=== PATIENT | female | born 1945 | race Caucasian/White ===

== ENCOUNTER 2017-05-18 10:59 | Inpatient (IN) ==
[2017-05-11 15:43] LABS: Basophils # (Auto) 0 K/mcL (0.0-0.3); Basophils % (Auto) 0.5 % (0.0-2.0); Eosinophils # (Auto) 0.2 K/mcL (0.0-0.7); Eosinophils % (Auto) 2.3 % (0.0-7.0); Lymphocytes # (Auto) 3.2 K/mcL (1.5-4.8); Lymphocytes % (Auto) 36.9 % (15.5-49.0); Mean Cell Volume 91.2 fL (80.0-100.0); Mean Corpuscular HGB Conc 33.1 g/dL (31.0-36.0); Mean Corpuscular Hemoglobin 30.2 pg (26.0-34.0); Monocytes # (Auto) 0.5 K/mcL (0.1-0.9); Monocytes % (Auto) 5.3 % (1.0-12.0); Platelet Count 287 K/mcL (140-440); RBC 4.52 M/mcL (4.00-5.20); Red Cell Distribution Width 13.8 % (11.5-14.5)
[2017-05-11 15:55] LABS: Appearance,Urine HAZY; Bacteria,Urine 0 /hpf (0); Bilirubin,Urine NEG (NEG); Color,Urine YELLOW; Glucose,Urine (UA) NEGATIVE (NEG); Leukocyte Esterase,Urine 250 /uL (NEG); Mucus,Urine FEW /hpf (0); Nitrate,Urine NEG (NEG); Protein,Urine NEG (NEG); Specific Gravity,Urine 1.024 (1.000-1.035); Urine Blood NEG mg/dL (<0.03); Urine RBC 1 /hpf (0-1); Urine Squamous Epithelial Cell 2 /hpf (0-4); Urine WBC 16 /hpf (0-4); Urobilinogen,Urine NEG (NEG)
[2017-05-11 15:58] LABS: Blood Urea Nitrogen 13 mg/dl (8-23)
--- NOTE | 2017-05-13 16:26 | EKG Interpretations ---
[employer] NET DEVELOPER: Alvin Alexander MD ENCOUNTER DATE: 05/18/2017 ELECTROCARDIOGRAM DATE: 05/11/2017 FINDINGS: Regular sinus rhythm, rate 72 beats per minute. Nonspecific inferolateral ST-segment changes. MARLEN: Job ID: [id number] Doc ID: [id number] Alvin Alexander MD
[~2017-05-18 10:59] MED LIST: KETOROLAC 30 MG, ROPIVACAINE HCL/PF 49.5 ML, EPINEPHrine 0.5 MG, 0.9 % SODIUM CHLORIDE ... IJ SCH; ceFAZolin 1 GM VIAL IV SCH
[2017-05-18] MEDS ORDERED: HYDROmorphone 2 MG/ML SYRINGE IV ONE (15:46)
[2017-05-18] MEDS ORDERED: KETOROLAC 30 MG, ROPIVACAINE HCL/PF 49.5 ML, EPINEPHrine 0.5 MG, 0.9 % SODIUM CHLORIDE ... IJ SCH (17:30)
[2017-05-18] MEDS ORDERED: IPRATROPIUM/ALBUTEROL 3 ML AMPUL.NEB NEB ONE (19:09)
[2017-05-18] MEDS ORDERED: DEXAMETHASONE 10 MG/ML VIAL IV ONE (19:50)
[2017-05-18] MEDS ORDERED: PROPOFOL 200 MG/20 ML VIAL IV ONE (19:50)
[2017-05-18] MEDS ORDERED: TRANEXAMIC ACID 1,000 MG/10 ML VIAL IV ONE ×2 (19:50→21:17)
[2017-05-18] MEDS ORDERED: LIDOCAINE HCL/PF 100 MG/5 ML SYRINGE IV ONE (19:50)
[2017-05-18] MEDS ORDERED: ePHEDrine 50 MG/ML AMPUL IV ONE (19:50)
[2017-05-18] MEDS ORDERED: ROPIVACAINE HCL/PF 20 ML VIAL IJ ONE (19:50)
[2017-05-18] MEDS ORDERED: ONDANSETRON 4 MG/2 ML VIAL IV ONE (19:50)
[2017-05-18] MEDS ORDERED: MIDAZOLAM 5 MG/5 ML VIAL IV ONE (19:50)
[2017-05-18] MEDS ORDERED: GENTAMICIN SULFATE 800 MG/20 ML VIAL IR ONE (20:29)
[2017-05-18] MEDS ORDERED: MEPERIDINE 25 MG/ML SYRINGE IV PRN (20:45)
[2017-05-18] MEDS ORDERED: ACETAMINOPHEN 1,000 MG/100 ML BOTTLE IV ONE (20:45)
[2017-05-18] MEDS ORDERED: ePHEDrine 50 MG/ML AMPUL IV PRN (20:45)
[2017-05-18] MEDS ORDERED: diphenhydrAMINE 50 MG/ML VIAL IV PRN (20:45)
[2017-05-18] MEDS ORDERED: ONDANSETRON 4 MG/2 ML VIAL IV PRN ×2 (20:45→21:17)
[2017-05-18] MEDS ORDERED: NALOXONE HCL 0.4 MG/ML VIAL IV PRN (20:45)
[2017-05-18] MEDS ORDERED: BENZOCAINE/MENTHOL 1 LOZENGE PO PRN ×2 (20:45→21:17)
[2017-05-18] MEDS ORDERED: FLUMAZENIL 0.1 MG/ML ML IV PRN (20:45)
[2017-05-18] MEDS ORDERED: fentaNYL 100 MCG/2 ML VIAL IV PRN (20:45)
[2017-05-18] MEDS ORDERED: METOPROLOL TARTRATE 5 MG/5 ML VIAL IV PRN (20:45)
[2017-05-18] MEDS ORDERED: LACTATED RINGERS 1,000 ML IV SCH (20:45)
[2017-05-18] MEDS ORDERED: HYDROmorphone 2 MG/ML SYRINGE IV PRN (20:45)
[2017-05-18] MEDS ORDERED: ATROPINE SULFATE 0.4 MG/ML VIAL IV PRN (20:45)
[2017-05-18] MEDS ORDERED: METHOCARBAMOL 1,000 MG/10 ML VIAL IV PRN (20:45)
[2017-05-18] MEDS ORDERED: IPRATROPIUM/ALBUTEROL 3 ML AMPUL.NEB NEB PRN (20:45)
[2017-05-18] MEDS ORDERED: METHOCARBAMOL 750 MG TABLET PO PRN (21:17)
[2017-05-18] MEDS ORDERED: POLYETHYLENE GLYCOL 3350 17 GM PACKET PO PRN (21:17)
[2017-05-18] MEDS ORDERED: FLEETS ADULT ENEMA PR PRN (21:17)
[2017-05-18] MEDS ORDERED: BISACODYL 10 MG SUPP.RECT PR PRN (21:17)
[2017-05-18] MEDS ORDERED: MAGNESIUM HYDROXIDE 30 ML ORAL.SUSP PO PRN (21:17)
--- NOTE | 2017-05-18 21:17 | Brief Operative Note ---
Date of procedure: 05/18/17 Pre-op diagnosis: Primary OA left knee Post-op diagnosis: same Procedure: L total knee arthroplasty Grafts/Implants: Yes (SNN BCS knee) Anesthesia: MICA Surgeon: Donal Salvador Credit Card Specialist: Guru Mak Estimated blood loss (cc): 100 Tourniquet Time (Minutes): 55 Specimens Removed/Pathology: none sent Condition: stable Disposition: PACU
[2017-05-18] MEDS ORDERED: ALBUTEROL SULFATE 1 PUFF INHALER IH PRN (21:21)
[2017-05-18] MEDS: 0.9 % SODIUM CHLORIDE 1,000 ML IV SCH (22:08)
[2017-05-18] MEDS: HYDROcodone/APAP 10/325MG TABLET PO PRN (23:20)
[2017-05-19] MEDS ORDERED: HYDROmorphone 2 MG/ML SYRINGE IV PRN (00:35)
[2017-05-19] MEDS ORDERED: HYDROmorphone 2 MG/ML SYRINGE ONE (01:03)
[2017-05-19] MEDS: 0.9 % SODIUM CHLORIDE 10 ML SYRINGE IV SCH ×2 (01:05→05:21)
[2017-05-19] MEDS ORDERED: ceFAZolin 1 GM VIAL ONE (02:42)
[2017-05-19] MEDS: HYDROcodone/APAP 10/325MG TABLET PO PRN ×2 (07:14→12:02)
--- NOTE | 2017-05-19 07:56 | Discharge Summary ---
Ortho Discharge - TKA - Patient Instructions Diet: Regular Diet Activity: activity as tolerated Total Knee Protocol: For Total Knee: Start ROM RALPH with stationary bike or rocking chair. Work on gaining full extension of knee. Posterior dislocation precautions provided. Hip abductor strengthening and gait training instructions provided. Apply Cryocuff as instructed. Dressing Care: May shower in 2 days Patient Education: General Anesthesia (GEN) Additional Instructions: Discharge Instructions: Do the exercises at home that physical therapy gave you. Take your prescription, photo ID, insurance cards, and current medication list with you to your first physical therapy appointment. Take your prescription to seed cone picker any medication or equipment (such as walker, crutches, toilet riser or C.P.M.) Wear comfortable clothing for your physical therapy. Weight bearing as tolerated. If you have the Aquacel Ag dressing, leave in place for 7 days then remove. If dressing becomes soiled (turns black), remove and use gauze 4x4 dressing and silvasorb ointment and change daily. Keep incision clean and dry. If you have Dermabond (a dressing with a mesh-like appearance), leave open to air. You may start showering on post op day #2. The Dermabond dressing can get wet, do not scrub dressing. Pat dry. To avoid constipation while taking any narcotic pain medication, take an over the counter stool softener/laxative. Use your Cryocuff or ice packs as directed, on for 20 minutes at a time throughout the day. This and elevation will help with pain and swelling. Call your physician for fevers above 100.5 or pain not controlled by medication. Your prescriptions are with your discharge information. Some medications were electronically transmitted to your pharmacy of choice. - Follow Up Plan Follow Up Appointments: Guru Mak PA-C [Physician Toddler Nanny] - Disposition: Home, Self-Care Prognosis: Good Rehab Potential: Good I certify that the patient requires SNF services: No Overall status at discharge: patient is not back to baseline
--- NOTE | 2017-05-19 07:58 | XRay Report ---
CLINICAL INFORMATION: Reason for Exam:Post-op total knee COMPARISON: None. FINDINGS: Total knee prostheses is anatomically aligned. There is no osseous abnormality. Periarticular soft tissue swelling and gas seen as expected. IMPRESSION: Negative Interpreted and Authenticated by: Emmett Clancy 05/19/17
--- NOTE | 2017-05-19 08:02 | Orthopedic Progress Note ---
Subjective Patient information: Note initiated : 05/19/17 at 8:00 am Service Date, if different from initiated Date: [] Patient: Brenda Hall 71 y/o F admitted on 05/18/17 for Left Total Knee Arthroplasty. Chief Complaint: [] Principal diagnosis: knee replacement Objective Vital signs: Vital Signs Temp Pulse Pulse Pulse Resp BP BP 05/19/17 07:39 79 05/19/17 06:40 05/19/17 04:00 97.0 F 76 18 102/62 05/19/17 00:00 96.9 F L 80 16 130/84 05/18/17 23:45 96.9 F L 81 16 132/83 05/18/17 23:15 97.0 F 77 16 133/78 05/18/17 23:00 77 16 124/83 05/18/17 22:45 97.0 F 79 16 148/83 05/18/17 22:35 96.8 F L 84 18 137/72 05/18/17 22:25 86 16 139/77 05/18/17 22:20 96.5 F L 82 16 139/77 05/18/17 22:10 97.6 F 82 18 133/60 05/18/17 22:04 82 17 132/51 05/18/17 21:49 90 17 105/56 05/18/17 21:34 97.4 F 100 H 16 142/62 05/18/17 16:00 97.5 F 80 16 157/85 05/18/17 12:00 97.5 F 16 169/87 Pulse Ox 05/19/17 07:39 97 05/19/17 06:40 97 05/19/17 04:00 97 05/19/17 00:00 96 05/18/17 23:45 96 05/18/17 23:15 99 05/18/17 23:00 98 05/18/17 22:45 98 05/18/17 22:35 99 05/18/17 22:25 97 05/18/17 22:20 98 05/18/17 22:10 99 05/18/17 22:04 100 05/18/17 21:49 100 05/18/17 21:34 100 05/18/17 16:00 95 05/18/17 12:00 95 Intake and Output 05/18/17 05/19/1705/19/17 21:59 05:59 13:59 Intake Total 1800 / 1800 500 / 500 790 / 790 Output Total 200 / 200 601 / 601 Balance 1600 / 1600 -101 / -101 790 / 790 Intake: IV 790 / 790 Sodium Chloride 0.9% 1, 790 / 790 000 ml @ 100 mls/hr IV . Q10H [facility] Rx#:[id number] Oral 0 / 0 400 / 400 IV - Manual Only 1800 / 1800 100 / 100 Output: Void Amount 150 / 150 600 / 600 # of times incontinent of 1 / 1 urine Estimated Blood Loss 50 / 50 Other: Meal 1/2 sandwich & applesauce Percent of Meal Consumed 100% Feeding Ability Independent Weight 186 lb Intake & Output: Intake & Output 05/18/17 05/19/17 05/19/17 21:59 05:59 13:59 Intake Total 1800 / 1800 500 / 500 790 / 790 Output Total 200 / 200 601 / 601 Balance 1600 / 1600 -101 / -101 790 / 790 Weight 186 lb Intake: IV 790 / 790 Sodium Chloride 0.9% 1, 790 / 790 000 ml @ 100 mls/hr IV . Q10H [facility] Rx#:[id number] Oral 0 / 0 400 / 400 IV - Manual Only 1800 / 1800 100 / 100 Output: Void Amount 150 / 150 600 / 600 # of times incontinent of 1 / 1 urine Estimated Blood Loss 50 / 50 Other: Meal 1/2 sandwich & applesauce Percent of Meal Consumed 100% Feeding Ability Independent Incision clean and dry: Yes Dressing: Yes clean, Yes dry Weight bearing status: as tolerated Neurological exam IM: Yes motor sensory intact Extremities exam IM: Yes neurovascular intact - Labs CBC & BMP: 05/19/17 05:12 05/11/17 13:56 Labs: Orthopedic Labs 05/11/17 13:56 PT 13.7 INR 1.0 05/19/17 05/11/17 05:12 13:56 Hgb 13.7 Hct 36.1 41.3 Assessment and Plan (1) Status post left knee replacement doing well . Continue PT and Lovenox Status: Acute
[2017-05-19] MEDS ORDERED: DOCUSATE SODIUM 100 MG CAPSULE PO SCH (09:00)
[2017-05-19] MEDS ORDERED: BECLOMETHASONE DIPROPIONATE 40MCG INHALER INH SCH (09:00)
[2017-05-19] MEDS ORDERED: ENOXAPARIN 30 MG/0.3 ML SYRINGE SQ SCH (09:00)
[2017-05-19] MEDS: 0.9 % SODIUM CHLORIDE 1,000 ML IV SCH (10:07)
[2017-05-19] MEDS ORDERED: ceFAZolin 1 GM VIAL IV ONE (11:00)
--- NOTE | 2017-05-19 11:44 | Operative Note ---
DATE OF OPERATION: 05/18/2017 PREOPERATIVE DIAGNOSIS: Degenerative joint disease of the left knee. POSTOPERATIVE DIAGNOSIS: Degenerative joint disease of the left knee. OPERATION: Left total knee replacement. SURGEON: Donal Salvador MD STOVE REFINISHER: Guru Mak PA-C ANESTHESIA: General done by Cheyenne Martinez CRNA. TOURNIQUET TIME: 55 minutes. ESTIMATED BLOOD LOSS: 250 mL SUMMARY OF PROCEDURE: General anesthesia was attained. The left leg was prepped and draped. A midline incision was made over the quadriceps and medial retinaculum. It was taken down sharply to this layer. The quadriceps and medial retinaculum was split. The quadriceps was mobilized laterally. The anterior menisci were resected. The intramedullary canals of both bones were drilled. The distal 9.5 mm of femur were resected using the guide system. Next, the proximal tibia was exposed. A guide system was used and a resection was done of the proximal tibia. The tibia sized to a 1. Flexion and extension balancing was then confirmed to be satisfactory using the guide system from [employer]. The femur was next prepared. The notch cuts were made using the guide system. The tibia was prepared by drilling and then broaching of the bone. The patella was everted. An anatomic 9 mm resection was done using a measured technique from a 23 down to 14 mm thickness. The prong holes were drilled in the patella. The joint surfaces were thoroughly irrigated. The posterior capsule was infiltrated with the multimodal solution for postoperative analgesia. The components were cemented in. Excess cement was removed. Cement was cured with the knee in extension. The tourniquet was let down. All bleeding points were coagulated. The quadriceps was closed with buried simple sutures of #2 FiberWire. The medial retinaculum was closed with a running locking 0 Maxon. The subcutaneous tissue was closed with 2-0 Monocryl throughout. The skin was closed with Dermabond. A sterile compressive dressing was applied. The sponge and needle count was correct. The patient tolerated the procedure well. She was taken to the recovery room in stable condition. TJF:[email or web address] Job ID: [id number] Doc ID: [id number] Donal Salvador MD
[2017-05-19] MEDS ORDERED: MONTELUKAST 10 MG TABLET PO SCH (21:00)
[2017-05-19] MEDS ORDERED: SENNOSIDES 1 TABLET PO SCH (21:00)
== END 2017-05-19 13:50 | disposition home or self-care (01) | DRG 470 ==
LOC: MEDSUR 10:59
PROVIDERS: ADMIT Orthopaedic Surgery Foot and Ankle Surgery; ATTEND Orthopaedic Surgery Foot and Ankle Surgery

== ENCOUNTER 2022-08-26 08:10 | Inpatient (IN) ==
--- NOTE | 2022-08-22 09:27 | EKG ---
[facility] Test Date: 2022-08-22 Pat Name: Brenda Hall Department: [facility] Room: Gender: Female Local [employer] Truck Driver: : [id number] Requested By: William Mondragon Order Number: [id number] Reading MD: Emmett Song M.D. Measurements Intervals [place] Rate: 65 P: 17 WI: 144 QRS: -23 QRSD: 101 T: 26 QT: 402 QTc: 417 Interpretive Statements Sinus rhythm Borderline left axis deviation Minimal ST depression, anterolateral leads Electronically Signed On 08-22-2022 9:27:01 PST by Emmett Song M.D. /store/[email or web address]/[id number]
[2022-08-22 12:51] LABS: Basophils # (Auto) 0.07 K/mcL (0.00-0.30); Basophils % (Auto) 0.9 % (0.0-2.0); Eosinophils # (Auto) 0.22 K/mcL (0.00-0.70); Eosinophils % (Auto) 2.8 % (0.0-7.0); Hematocrit 39.5 % (34.1-44.9); Hemoglobin 12.6 g/dL (11.2-15.7); Lymphocytes # (Auto) 2.33 K/mcL (1.50-4.80); Mean Cell Volume 94.5 fL (80.0-100.0); Mean Corpuscular HGB Conc 31.9 g/dL (31.0-36.0); Mean Platelet Volume 9.4 fL (8.8-12.5); Monocytes # (Auto) 0.44 K/mcL (0.10-0.90); Monocytes % (Auto) 5.7 % (1.0-12.0); Neutrophils % (Auto) 60.2 % (38.0-78.0); Platelet Count 255 K/mcL (140-440); RBC 4.18 M/mcL (3.59-5.38); Red Cell Distribution Width 13.2 % (11.5-14.5); WBC 7.8 K/mcL (4.5-11.0)
[2022-08-22 13:04] LABS: Appearance,Urine CLEAR (Clear); Bacteria,Urine Few /hpf (0); Bilirubin,Urine NEGATIVE (Negative); Color,Urine LT. YELLOW; Culture Indicated,Urine No; Glucose,Urine (UA) NEGATIVE (Negative); Ketones,Urine NEGATIVE (Negative); Leukocyte Esterase,Urine SMALL /uL (Negative); Mucus,Urine Few /hpf; Nitrate,Urine NEGATIVE (Negative); Protein,Urine NEGATIVE (Negative); Urine Amorphous Crystals Few /hpf; Urine Blood NEGATIVE ery/mcL (Negative); Urine RBC 2 /hpf (0-3); Urine Squamous Epithelial Cell 8 /hpf (0-4); Urine Transitional Epi Cells 2 /hpf (0-2); Urine WBC 9 /hpf (0-4); Urobilinogen,Urine Normal
[2022-08-22 16:08] LABS: Blood Urea Nitrogen 10 mg/dL (8-23); Calcium 9.6 mg/dL (8.6-10.4); Carbon Dioxide 26 mmol/L (22-30); Chloride 103 mmol/L (96-108); Glomerular Filtration Rate 85; Glucose 87 mg/dL (70-105)
[~2022-08-26 08:10] MED LIST changes: +0.9 % SODIUM CHLORIDE 9 ML, KETOROLAC 30 MG, ROPIVACAINE HCL/PF 49.5 ML, EPINEPHrine 0.... IJ SCH; +ACETAMINOPHEN 500 MG TABLET PO SCH; +CELECOXIB 200 MG CAPSULE PO SCH; -KETOROLAC 30 MG, ROPIVACAINE HCL/PF 49.5 ML, EPINEPHrine 0.5 MG, 0.9 % SODIUM CHLORIDE ... IJ SCH; +PREGABALIN 75 MG CAPSULE PO SCH; -ceFAZolin 1 GM VIAL IV SCH; +ceFAZolin 2 GM in DEXTROSE 5% IN WATER 50 ML IV SCH; +oxyCODONE 10 MG TAB.ER.12H PO SCH
[2022-08-26] MEDS ORDERED: TRANEXAMIC ACID 1,000 MG/10 ML VIAL ONE (09:57)
[2022-08-26] MEDS ORDERED: MAGNESIUM SULFATE 2 GM/50 ML BAG IV ONE (09:57)
[2022-08-26] MEDS ORDERED: LIDOCAINE HCL/PF 100 MG/5 ML SYRINGE IV ONE (09:57)
[2022-08-26] MEDS ORDERED: ROPIVACAINE HCL/PF 20 ML VIAL IJ ONE (09:57)
[2022-08-26] MEDS ORDERED: DEXAMETHASONE 10 MG/ML VIAL ONE (09:57)
[2022-08-26] MEDS ORDERED: PROPOFOL 200 MG/20 ML VIAL IV ONE (09:57)
[2022-08-26] MEDS ORDERED: ONDANSETRON 4 MG/2 ML VIAL ONE (09:57)
[2022-08-26] MEDS ORDERED: GLYCOPYRROLATE 0.2 MG/ML VIAL IV ONE (09:57)
[2022-08-26] MEDS ORDERED: KETAMINE 50 MG/ML Syringe (ANEST) IV ONE (09:57)
[2022-08-26] MEDS ORDERED: IPRATROPIUM/ALBUTEROL 3 ML AMPUL.NEB NEB PRN ×2 (10:00→10:52)
[2022-08-26] MEDS ORDERED: SCOPOLAMINE 1 PATCH PATCH TOPICAL PRN (10:00)
[2022-08-26] MEDS ORDERED: METOPROLOL TARTRATE 5 MG/5 ML VIAL IV PRN (10:52)
[2022-08-26] MEDS ORDERED: ONDANSETRON 4 MG/2 ML VIAL IV PRN ×2 (10:52→11:00)
[2022-08-26] MEDS ORDERED: NALOXONE HCL 0.4 MG/ML VIAL IV PRN (10:52)
[2022-08-26] MEDS ORDERED: LACTATED RINGERS 250 ML IV PRN (10:52)
[2022-08-26] MEDS ORDERED: LABETALOL 5 MG/ML ML IV PRN (10:52)
[2022-08-26] MEDS ORDERED: fentaNYL 100 MCG/2 ML VIAL IV PRN (10:52)
[2022-08-26] MEDS ORDERED: METHOCARBAMOL 1,000 MG/10 ML VIAL IV PRN (10:52)
[2022-08-26] MEDS ORDERED: MEPERIDINE 25 MG/ML VIAL IV PRN (10:52)
[2022-08-26] MEDS ORDERED: TRANEXAMIC ACID 1,000 MG/10 ML VIAL IV ONE (11:00)
[2022-08-26] MEDS ORDERED: POLYETHYLENE GLYCOL 3350 17 GM PACKET PO PRN (11:00)
[2022-08-26] MEDS ORDERED: ACETAMINOPHEN 325 MG TABLET PO PRN (11:00)
[2022-08-26] MEDS ORDERED: FLEETS ADULT ENEMA PR PRN (11:00)
[2022-08-26] MEDS ORDERED: MAGNESIUM HYDROXIDE 30 ML ORAL.SUSP PO PRN (11:00)
[2022-08-26] MEDS ORDERED: HYDROmorphone 1 MG/ML SYRINGE IV PRN (11:00)
[2022-08-26] MEDS ORDERED: LACTATED RINGERS 1,000 ML IV SCH (11:00)
[2022-08-26] MEDS ORDERED: TEMAZEPAM 15 MG CAPSULE PO PRN (11:00)
[2022-08-26] MEDS ORDERED: BISACODYL 10 MG SUPP.RECT PR PRN (11:00)
--- NOTE | 2022-08-26 11:00 | Brief Operative Note ---
Brief Operative Note Date of procedure: 08/26/22 Pre-op diagnosis: left knee failed tka patella Post-op diagnosis: same Procedure: left tka revision patella Grafts/Implants: Yes Anesthesia: GETA Findings: maltracking patella Complications: none Surgeon: Isaiah Franco Transportation Design Engineer: Dayday Payton Estimated blood loss (cc): 21 Tourniquet Time (Minutes): 34 Specimens Removed/Pathology: none sent Condition: stable Disposition: PACU
[2022-08-26] MEDS ORDERED: ALBUTEROL SULFATE 60 PUFF INHALER IH PRN (11:03)
--- NOTE | 2022-08-26 11:03 | Discharge Plan ---
Discharge Instructions - TKA Patient Instructions Total Knee Protocol: For Total Knee: Start ROM RALPH with stationary bike or rocking chair. Work on gaining full extension of knee. Posterior dislocation precautions provided. Hip abductor strengthening and gait training instructions provided. Apply Cryocuff as instructed. Dressing Care: May shower in 2 days Discharge Plan Patient/Caregiver Discharge Instructions Activity: ambulate only with your walker and as per physical therapy Diet: Regular Diet Activity Restrictions/Additional Instructions: Resume home diet as tolerated. Do the exercises at home that physical therapy gave you. Start ROM RALPH with stationary bike or rocking chair. Work on gaining full extension of knee. Weight bearing as tolerated operative side. Activity as tolerated. Use your ice packs as tolerated throughout the day. The icing of your knee, use of ANITA wrap, and elevation will help with pain and swelling. Contact the physical therapy facility of your choice on Monday, 09/01, to schedule your first appointment. Take your prescription, photo ID, insurance cards, and current medication list with you to your first physical therapy appointment. Wear comfortable clothing for your physical therapy. Consider pre- medicating with pain medication 45 minutes prior to physical therapy appointment. Do not drive while on pain medication. You have the ZipLine dressing (a waterproof dressing) covering your surgical incision. DO NOT remove this dressing. Leave in place until follow-up appt. You may start showering on Monday, . The Zipline dressing can get wet. Do not scrub dressing. Do not use soaps, creams, or lotions over the dressing. Pat dry. No bathing or soaking in hot tub until released by surgeon. Replace daily with new gauze and secure with ANITA wrap. Take your prescriptions to corn picker equipment or medications. Your prescriptions are with your discharge information. Some medications were electronically transmitted to [facility] pharmacy of choice. You will be taking Aspirin 81 mg 2 x daily for 30 days to prevent blood clots. To avoid constipation while taking any narcotic pain medication, take an over the counter stool softener/laxative. If you have any questions or concerns, call your orthopedic surgeon before going to the emergency room. [facility] has an on-call physician 24 hours per day/7 days per week and can be reached at [phone]. Call for fevers above 100.5 or pain not controlled by medication. This discharge packet is provided to you to help keep you informed about your care. We want to ensure you get everything you need when you go home. You will also be receiving a call from us in a few days to follow up with you and see how you are doing since your discharge. This gives us a chance to listen to any concerns you maybe experiencing since you were discharged or any additional needs you may have, as well as providing us feedback on your care experience. We strive to always provide excellent care and thank you for your feedback and for choosing [facility]. Prescriptions: New hydrocodone-acetaminophen 10-325 mg tablet 1 - 2 tab PO Q4H PRN (Reason: pain) Qty: 75 0RF aspirin [Ecotrin Low Strength] 81 mg tablet,delayed release (DR/EC) 81 mg PO BID Qty: 60 0RF docusate sodium 100 mg capsule 100 mg PO BID Qty: 60 0RF No Action montelukast 10 MG tablet 10 mg PO HS PRN (Reason: asthma) albuterol sulfate [Proventil HFA] 6.7 GM HFA aerosol inhaler 2 gm IH Q6HP PRN (Reason: Shortness Of Breath) Qvar RediHaler 1 PUFF HFA aerosol breath activated 1 puff INH DAILY Centrum Silver Tablet 1 tab PO QDAY gabapentin 300 mg Tablet 600 mg PO QPM Fruit and Vegetable Daily 5-6-150 mg Capsule 1 cap PO DAILY ferrous sulfate 324 mg (65 mg iron) Tablet,Delayed Release (Dr/Ec) 324 mg PO .QOD potassium gluconate 595 mg (99 mg) Tablet 595 mg PO QDAY vitamin K2 40 mcg Tablet 40 mcg PO QDAY turmeric 400 mg Capsule 400 mg PO DAILY Follow Up Plan Follow up with: Dayday Payton PA-C [Physician [employer] Facer] - 09/06/22 1:40 pm Patient Disposition: Home, Self-Care Prognosis: Critical Rehab Potential: Good I certify that the patient requires SNF services: No Overall status at discharge: patient is progressing back to baseline Discharge Orders: Discharge Order (Routine); Ordered 08/27/22 Ordered By: Dayday Payton Discharge Comment: accompanied by spouse
--- NOTE | 2022-08-26 11:55 | XRay Report ---
INDICATION: Post-Op Total Knee TECHNIQUE: AP and crosstable lateral COMPARISON: Previous examination dated 02/04/2022 FINDINGS:Status post revision of left total knee arthroplasty. Normal anatomic alignment. There is postsurgical soft tissue and intra-articular gas. IMPRESSION: Revision of left total knee arthroplasty Interpreted and Authenticated by: Emmett Souza 08/26/22
[2022-08-26] MEDS: 0.45 % SODIUM CHLORIDE 1,000 ML IV SCH ×2 (13:38→21:22)
[2022-08-26] MEDS: ceFAZolin 1 GM VIAL IV SCH (17:08)
[2022-08-26] MEDS: 0.9 % SODIUM CHLORIDE 10 ML SYRINGE IV SCH ×2 (17:09→21:22)
[2022-08-26] MEDS: HYDROcodone/APAP 10/325MG TABLET PO PRN (18:47)
[2022-08-26] MEDS ORDERED: GABAPENTIN 300 MG CAPSULE PO SCH (21:00)
[2022-08-26] MEDS ORDERED: SENNOSIDES 1 TABLET PO SCH (21:00)
[2022-08-26] MEDS ORDERED: MONTELUKAST 10 MG TABLET PO PRN (21:00)
[2022-08-26] MEDS: DOCUSATE SODIUM 100 MG CAPSULE PO SCH (21:20)
[2022-08-27] MEDS: HYDROcodone/APAP 10/325MG TABLET PO PRN ×3 (00:19→10:15)
[2022-08-27] MEDS: ceFAZolin 1 GM VIAL IV SCH (02:10)
[2022-08-27] MEDS: 0.45 % SODIUM CHLORIDE 1,000 ML IV SCH (05:25)
[2022-08-27] MEDS: 0.9 % SODIUM CHLORIDE 10 ML SYRINGE IV SCH (06:09)
[2022-08-27] MEDS: DOCUSATE SODIUM 100 MG CAPSULE PO SCH (08:43)
[2022-08-27] MEDS ORDERED: BECLOMETHASONE DIPROPIONATE 40MCG INHALER INH SCH (09:00)
[2022-08-27] MEDS ORDERED: VITAMIN K2 40 MCG PO SCH (09:00)
[2022-08-27] MEDS ORDERED: POTASSIUM GLUCONATE PO SCH (09:00)
[2022-08-27] MEDS ORDERED: MULTIVIT,THER IRON,CA,FA & MIN 1 TABLET PO SCH (09:00)
[2022-08-27] MEDS ORDERED: [UNRECOGNIZED DRUG - OTHER] PO SCH (09:00)
[2022-08-27] MEDS ORDERED: NON FORMULARY MEDICATION 1 DOSE MISCELL (Turmeric 400 mg Capsule) PO SCH (09:00)
--- NOTE | 2022-08-27 10:11 | Orthopedic Progress Note ---
SUBJECTIVE Subjective Patient information: Note initiated : 08/27/22 at 10:07 am Service Date, if different from initiated Date: [] Patient: Brenda Hall 77 y/o F admitted on 08/26/22 for Left Total Knee Arthroplsty Revision. Chief Complaint: total knee left with no nausea or vomiting[] Principal diagnosis: total knee revision Constitutional Vitals: Vital Signs Temp Pulse Resp BP Pulse Ox O2 Del Method O2 Flow Rate 97.6 F 67 14 108/61 97 2 08/27/22 07:30 08/27/22 07:30 08/27/22 07:30 08/27/22 07:30 08/27/22 07:39 08/27/22 07:39 08/27/22 00:00 Period Temp Pulse Resp BP Sys/Stevens Pulse Ox O2 Del Method O2 Flow Rate Last 24 Hr 96.9 F-98.1 F 59-78 7-24 88-124/53-96 96-100 Nasal Cannula- Room Air 2-6 Intake and Output 08/26/22 08/27/22 08/27/22 19:59 03:59 11:59 Intake Total 2060 2280 480 Output Total 808 655 0055 Balance 1610 1680 -520 Weight 150 lb 12.8 oz Intake & Output: Intake & Output 08/26/22 08/27/22 08/27/22 19:59 03:59 11:59 Intake Total 2060 2280 480 Output Total 879 075 6080 Balance 1610 1680 -520 Weight 150 lb 12.8 oz Intake: IV 1000 Lactated Ringers 1,000 ml @ 20 1000 mls/hr IV .Q24H [facility] Rx#: [id number] Oral 960 1280 480 IV - Manual Only 1100 Output: Urine Catheter Amount 400 Void Amount 600 1000 Estimated Blood Loss 50 Other: Meal Lunch Nourishment/Supplement Breakfast Percent of Meal Consumed 100% 100% 100% Feeding Ability Independent Independent Independent Urine Appearance Clear Clear Clear Urine Color Yellow Yellow Yellow Urine Odor Normal Normal General appearance: average body habitus and no acute distress Expanded Lower Extremity Exam Ankle exam: Present swelling OBJ DATA Labs CBC & Chem 7: 08/27/22 05:03 08/22/22 08:48 Meds: Medications Acetaminophen (Acetaminophen 325 Mg Tablet) 650 mg PO Q6HP PRN; Protocol PRN Reason: Per Pain Protocol/Fever > 101 Hydrocodone Bitart/Acetaminophen (Hydrocodone/Apap 10/325mg Tablet) 1 - 2 tab PO Q4HP PRN; Protocol PRN Reason: Per Pain Protocol Last Admin: 08/27/22 06:08 Dose: 1 tab Albuterol Sulfate (Albuterol Sulfate 60 Puff Inhaler) 2 puff IH Q6HP PRN PRN Reason: Shortness Of Breath Bisacodyl (Bisacodyl 10 Mg Supp.Rect) 10 mg ME Q2-3DAYS PRN PRN Reason: Constipation Docusate Sodium (Docusate Sodium 100 Mg Capsule) 100 mg PO BID [facility] Last Admin: 08/27/22 08:43 Dose: 100 mg Gabapentin (Gabapentin 300 Mg Capsule) 600 mg PO QPM [facility] Last Admin: 08/26/22 21:20 Dose: 600 mg Hydromorphone HCl (Hydromorphone 1 Mg/Ml Syringe) 0.5 - 2 mg IV Q2HP PRN; Protocol PRN Reason: Per Pain Protocol Sodium Chloride (Sodium Chloride 0.45%) 1,000 mls @ 100 mls/hr IV .Q10H [facility] Last Admin: 08/27/22 05:25 Dose: Not Given Iron Carb/Multivit/[place]/Folic Acid (Multivit,Ther Iron,Ca,Fa & Min 1 Tablet) 1 tab PO QDAY [facility] Last Admin: 08/27/22 08:43 Dose: 1 tab Magnesium Hydroxide (Magnesium Hydroxide 30 Ml Oral.Susp) 30 ml PO BIDP PRN PRN Reason: Constipation Montelukast Sodium (Montelukast 10 Mg Tablet) 10 mg PO HSP PRN PRN Reason: asthma Ondansetron HCl (Ondansetron 4 Mg/2 Ml Vial) 4 mg IV Q4HP PRN PRN Reason: Nausea And Vomiting Polyethylene Glycol (Polyethylene Glycol 3350 17 Gm Packet) 17 gm PO DAILYP PRN PRN Reason: Constipation Senna (Sennosides 1 Tablet) 2 tab PO HS [facility] Last Admin: 08/26/22 21:20 Dose: 2 tab Sodium Biphosphate/Sodium Phosphate (Fleets Adult Enema) 1 dose ME Q3-4DAYS PRN PRN Reason: Constipation Sodium Chloride (0.9 % Sodium Chloride 10 Ml Syringe) 10 ml IV Q8 [facility] Last Admin: 08/27/22 06:09 Dose: 10 ml Temazepam (Temazepam 15 Mg Capsule) 15 mg PO HSP PRN PRN Reason: Insomnia A/P Assessment and plan (1) Left knee pain: Status: Acute Qualifiers: Chronicity: acute Qualified Code(s): M25.562 - Pain in left knee (2) Status post revision of total replacement of left knee: Status: Acute Plan dc home Sepsis Sepsis Identified: No Time Spent With Patient Time: Total time spent is greater than 50% in coordination of care (as documented) at patient's floor/unit and/or counseling patient: Total time spent with greater than 50% in coordination of care (as documented) at patient's floor/unit and/or counseling patient:: 15 - 24 minutes
--- NOTE | 2022-08-29 07:37 | Operative Note ---
DATE OF OPERATION: 08/26/2022 DATE OF PROCEDURE: 08/26/2022 PREOPERATIVE DIAGNOSIS: Left knee patellofemoral maltracking. POSTOPERATIVE DIAGNOSIS: Left knee patellofemoral maltracking. PROCEDURE: Revision of her patellar component with lateral release. SURGEON: Isaiah Franco M.D. SUPERVISOR BREW HOUSE: Dayday Payton PA-C. The expertise and technical skill of this provider were required throughout the case. The LISA assisted with preoperative coordination, intraoperative retraction, wound closure, and dressing and splint application, as well as postoperative documentation and care coordination. ANESTHESIA: General LMA anesthesia. COMPLICATIONS: None. DISPOSITION: PACU. IMPLANTS: Changed from a size 32 patella to 35 with a lateral release. DESCRIPTION OF PROCEDURE: The patient was brought to the operating room, put to sleep with general LMA anesthesia. Once asleep, the patient had the left leg sterilely prepped and draped in the usual sterile fashion. Timeout had been performed, confirming preoperative antibiotics and the side. A midline incision through the prior scar was made. Midvastus approach was created and we exposed the joint showing a hinged total knee. We irrigated. There were no signs of infection. No purulence. We removed any impinging tissue and removed the patellar component. This was cemented into place. We used the reciprocating saw. We cut the patella and removed any cement. We then redrilled the 35 mm guide for a 35 mm patella. We trialed the component. This seemed to track very well. We performed a slight lateral release using the outside-in technique. Once this was done, we then cemented into place a size 35 mm oval patella, which fit very nicely. We irrigated thoroughly and then removed any excess cement, kept the knee at 35 degrees until dry. We thoroughly irrigated and then closed the capsule with #1 Stratafix x2, closed the skin with Stratafix and adhesive closure. The patient tolerated this well without complication. Tourniquet time was approximately 40 minutes. RBH:[email or web address] Job ID: [id number] Doc ID: [id number] Isaiah Franco MD
== END 2022-08-27 13:10 | disposition home or self-care (01) | DRG 468 ==
LOC: MEDSUR 08:10
PROVIDERS: ADMIT Orthopaedic Surgery; ATTEND Orthopaedic Surgery